=== PATIENT | male | born 1960 ===

== ENCOUNTER 2018-04-03 23:11 | Emergency (ER) | payer MEDICAID ==
[2018-04-03 23:19] VITALS: BP 150/105; PULSE 87; RESP 18; TEMP 98.2; O2SAT 96
--- NOTE | 2018-04-04 00:11 | ED PDOC ---
HPI: Psych/Substance Abuse Time Seen by Provider: 04/03/18 23:32 Chief Complaint (Nursing): Psychiatric Evaluation History Per: Patient History/Exam Limitations: no limitations Onset/Duration Of Symptoms: Days Current Symptoms Are (Timing): Still Present Additional Complaint(s): Patient states he has no PMHx presenting with paranoid thoughts, states that 4 weeks ago he relapsed and used crack-cocaine but has not used any since. Since that time, he has been having thoughts that his is cheating on him based on facebook posts he thought he's seen, although his showed him that she had not posted anything of like. Patient states he went to the police a week ago and filed a fake police report. Today, when the found out about the police report, she got upset and told him to redact it, states he went to the police to redact the report and also relayed paranoid thoughts, EMS was called and patient was brought to ED for further eval. Denies suicidal or homicidal thoughts. States he has thoughts that his is poisoning him because he has been having more confusion than normal. States one month ago he had an episode of chest pain, but none now. Past Medical History Reviewed: Historical Data, Nursing Documentation, Vital Signs Vital Signs: Last Vital Signs Temp 98.2 F 04/03/18 23:15 Pulse 87 04/03/18 23:15 Resp 18 04/03/18 23:15 BP 150/105 H 04/03/18 23:15 Pulse Ox 96 04/03/18 23:15 - Medical History PMH: No Chronic Diseases - Family History Family History: States: Unknown Family Hx - Allergies Allergies/Adverse Reactions: Allergies Allergy/AdvReac Type Severity Reaction Status Date / Time Penicillins Allergy Mild RASH Verified 04/03/18 23:20 Review of Systems ROS Statement: Except As Marked, All Systems Reviewed And Found Negative Psych: Positive for: Anxiety. Negative for: Depression Physical Exam - Reviewed Nursing Documentation Reviewed: Yes Vital Signs Reviewed: Yes - Physical Exam Appears: Positive for: Well, Non-toxic, No Acute Distress Head Exam: Positive for: ATRAUMATIC, NORMAL INSPECTION, NORMOCEPHALIC Skin: Positive for: Normal Color, Warm, DRY Eye Exam: Positive for: EOMI, Normal appearance, PERRL ENT: Positive for: Normal ENT Inspection Neck: Positive for: Normal, Painless ROM Cardiovascular/Chest: Positive for: Regular Rate, Rhythm Respiratory: Positive for: CNT, Normal Breath Sounds Gastrointestinal/Abdominal: Positive for: Normal Exam, Soft Back: Positive for: Normal Inspection Extremity: Positive for: Normal ROM Neurologic/Psych: Positive for: Alert, [employer] studies professor II-XII, Oriented, Mood/Affect ( slightly anxious). Negative for: Motor/Sensory Deficits - ECG ECG: Positive for: Interpreted By Me, Viewed By Me ECG Rhythm: Positive for: Normal QRS, Normal ST Segment, Sinus Rhythm O2 Sat by Pulse Oximetry: 96 Pulse Ox Interpretation: Normal Medical Decision Making Medical Decision Makin Patient came to ER for evaluation for paranoid thoughts -Patient calm, cooperative, stable -Patient not a danger to himself or others at this time -Offered patient workup including urine studies, blood, and head CT but patient states he's feeling well currently and wishes to go to [place] for further eval because his works there -Patient declining workup, daughter at bedside who states she will take him to [place] for further eval -Patient discharged in calm, well appearance, stable gait, normal neuro and physical exam Disposition - Clinical Impression Clinical Impression: Anxiety - Disposition Referrals: Tamela Coronado GRAVITY MANAGER [Advanced Practice Nurse] - Disposition: Routine/Home Disposition Time: 00:00 Condition: STABLE Instructions: Anxiety, Adult (DC) Forms: [employer] (Hebrew)
== END 2018-04-04 00:10 | disposition home or self-care (01) ==
LOC: H.ER 23:11
DX: F41.9 Anxiety disorder, unspecified (principal); Z88.0 Allergy status to penicillin